=== PATIENT | female | born 1970 | race Two or more races ===

== ENCOUNTER 2024-10-05 17:18 | Emergency (ER) | payer OTHER ==
[2024-10-05] MEDS: IBUPROFEN 800 MG TAB PO ONE (17:47)
--- NOTE | 2024-10-05 18:08 | DVH ---
CLINICAL INDICATION: RO FX TECHNIQUE: 3 views of the right ankle Comparison: None FINDINGS/IMPRESSION: Nondisplaced acute traumatic fracture of the distal fibula Soft tissue swelling around the ankle.
[2024-10-05 19:04] VITALS: BP 131/82; PULSE 94; RESP 18; TEMP 98.5; O2SAT 98
[2024-10-05] MEDS: ONDANSETRON ODT 4 MG TAB PO ONE (19:14)
[2024-10-05] MEDS: HYDROcodone-ACET 5/325MG TAB PO ONE (19:14)
[2024-10-05] MEDS ORDERED: ACE3T PO (19:16)
--- NOTE | 2024-10-05 19:17 | ED.PDOC ---
Musculoskeletal HPI Comments 54 year old female presents to ER complaints of right ankle pain x1 day. Patient reports she started experiencing pain/swelling/cracking sensation to right lateral ankle at 9:00 a.m. this morning s/p sliding and falling on her right side while walking down a ramp of her mothers house. Denies head injury/LOC. She rates her current pain a 10/10 to right lateral ankle without radiation. Denies use of medications for current symptoms. Notes she has not been able to bear weight on right leg due to right lateral ankle pain. Denies right foot pain, right knee pain, right hip pain or any further symptoms/complaints Chief Complaint: Fall Injury Time Seen by MD: 18:12 Primary Care Provider: MOLINA Reviewed Notes: Nurses Notes, Medications, Allergies Allergies: Coded Allergies: NO KNOWN ALLERGIES (Unverified , 10/05/24) Home Meds Active Scripts Acetaminophen W/ Codeine (Tylenol W/Cod #3) 1 Tab Tb, 1 TAB PO Q6HPRN, #10 TAB 0 Refills Prov:ELIS VIDALES 10/05/24 Information Source: Patient Mode of Arrival: Ambulatory Past Medical History PAST MEDICAL HISTORY: Denies Surgical History: Denies all surgeries Family History Family History: Unknown Social History Smoker: Non-Smoker Alcohol: Denies ETOH Use Drugs: Denies Drug Use Lives In: Home Constitutional: denies: chills, diaphoresis, fatigue, fever, malaise, sweats, weakness, others EENTM: denies: blurred vision, double vision, ear bleeding, ear discharge, ear drainage, ear pain, ear ringing, eye pain, eye redness, hearing loss, mouth pain, mouth swelling, nasal discharge, nose bleeding, nose congestion, nose pain, photophobia, tearing, throat pain, throat swelling, voice changes, others Respiratory: denies: cough, hemoptysis, orthopnea, SOB at rest, shortness of breath, SOB with excertion, stridor, wheezing, others Cardiovascular: denies: chest pain, dizzy spells, diaphoresis, Dyspnea on exertion, edema, irregular heart beat, left arm pain, lightheadedness, palpitations, PND, syncope, others Gastrointestinal: denies: abdomen distended, abdominal pain, blood streaked bowels, constipated, diarrhea, dysphagia, difficulty swallowing, hematemesis, melena, nausea, poor appetite, poor fluid intake, rectal bleeding, rectal pain, vomiting, others Genitourinary: denies: abnormal vagina bleeding, burning, dyspareunia, dysuria, flank pain, frequency, hematuria, incontinence, pain, , vagina dis charge, urgency, others Neurological: denies: dizziness, fainting, headache, left sided numbness, left sided weakness, numbness, paresthesia, pre-existing deficit, right sided numbness, right sided weakness, seizure, speech problems, tingling, tremors, weakness, others Musculoskeletal: reports: others (As stated in HPI) Integumetry: reports: others (As stated in HPI) Allergic/Immunocompromised: denies: Difficulty Healing, Frequent Infections, Hives, Itching, others Hematologic/Lymphatic: denies: anemia, blood clots, easy bleeding, easy bruising, swollen glands, others Endocrine: denies: excessive hunger, excessive sweating, excessive thirst, excessive urination, flushing, intolerance to cold, intolerance to heat, unexplained weight gain, unexplained weight loss, others Psychiatric: denies: anxiety, bipolar disorder, depression, hopeless, panic disorder, schizophrenia, sleepless, suicidal, others Physical Exam General Appearance: No Apparent Distress HEENT: PERRL/EOMI Neck: Full Range of Motion, Non-Tender, Normal Respiratory: Chest Non-Tender, Lungs Clear, No Accessory Muscle Use, No Respiratory Distress, Normal Breath Sounds Cardiovascular: No Murmur, No Gallop, Regular Rate/Rhythm Breast Exam: Deferred Gastrointestinal: NOT DONE Genitalia: Deferred Pelvic: Deferred Rectal: Deferred Extremities: No calf tenderness, Normal capillary refill Musculoskeletal : Extremity Location: Ankle (Moderate swelling/TTP/ecchymosis noted to right distal fibula. No other TTP to right ankle/right foot or other TTP to right lower extremity appreciated. Pulses intact. Patient unable to bear weight on right leg due to pain localized to right distal fibula ) Neurologic: Alert, No Motor Deficits, Normal Affect, Normal Mood, No Sensory Deficits Cerebellar Function: Normal Reflexes: Normal Skin: Dry, Warm Peripheral Pulses: 2+ femoral (R), 2+ femoral (L), 2+ dorsalis pedis (R), 2+ dorsalis pedis (L), 2+ Radial (R), 2+ Radial (L), 2+ Brachial (R), 2+ Brachial (L) Lymphatic: No Adenopathy Was a procedure done? Was a procedure done?: No Sedation Sedation?: No Differential Diagnosis EXT Differential Diagnosis: Dislocation, Laceration, Neurovascular injury X-Ray, Labs, Meds, VS Vital Signs Date Time Temp Pulse Resp B/P (MAP) Pulse Ox O2 Delivery O2 Flow Rate FiO2 10/05/24 19:04 98.5 94 18 131/82 (98) 98 98.5 10/05/24 19:04 94 18 98 Room Air 10/05/24 17:25 98.5 94 18 131/82 (98) 98 Current Medications Medications (Trade) Dose Ordered Sig/Umair Route Start Time Stop Time Status Last Admin Ibuprofen (Motrin Tablet) 800 mg ONCE ONCE PO 10/05/24 17:45 10/05/24 17:46 DC 10/05/24 17:47 Acetaminophen/ Hydrocodone Bitart ([place] 5/325MG Tab) 1 tab ONCE ONCE PO 10/05/24 19:15 10/05/24 19:16 DC 10/05/24 19:14 Ondansetron HCl (Zofran Po) 4 mg ONCE ONCE PO 10/05/24 19:15 10/05/24 19:16 DC 10/05/24 19:14 PATIENT: JAMARCUS KWANCCT: [id number]: [id number] : 1970 LOC: ER ROOM / BED: / AGE / SEX: 54 / F ADM STATUS: REG ER SERVICE 31 ORDERING PHYSICIAN: MINDY MAHAN PROCEDURE(s): RANKL - R ANKLE 3 VIEW REASON: RO FX ORDER NUMBER(s): [id number], ACCESSION NUMBER(s): [id number] CLINICAL INDICATION: RO FX TECHNIQUE: 3 views of the right ankle Comparison: None FINDINGS/IMPRESSION: Nondisplaced acute traumatic fracture of the distal fibula Soft tissue swelling around the ankle. ATED BY: TERRY SHANKS MD DICTATED DATE/TIME: 10/05/241805 SIGNED BY: TERRY SHANKS MD SIGNED DATE/TIME: 10/05/241805 CC: Right ankle x-ray reviewed Ibuprofen 800 mg p.o. ordered [place] 5/325 mg p.o. ordered Zofran 4 mg p.o. ordered Right posterior short-leg splint applied Crutches ordered, patient educated on proper use. Was advised on nonweightbearing right leg Advised on rest/ no strenuous activity, elevation and alternate ice on/off as needed for pain/swelling Patient provided copy of x-ray imaging report Case, x-ray imaging report/images were discussed with orthopedic Dr. Cerda Patient provided information with regards to local orthopedic Dr. Farias office and advised to follow up in 1-2 days Advised to follow up with PCP in 1-2 days Patient verbalized understanding and agreeable with current plan of care Advised to return to ER immediately if symptoms worsen Time of 1ST Reevaluation: 18:44 Reevaluation 1ST: N/A Patient Education/Counseling: Diagnosis, Treatment, Prognosis, Need For Follow Up Family Education/Counseling: No Family Present Departure 1 Departure Time of Disposition: 19:02 Impression: Primary Impression: Ankle fracture, right Qualified Codes: S82.891A - Other fracture of right lower leg, initial encounter for closed fracture Disposition: 01 HOME / SELF CARE / HOMELESS Condition: Stable e-Prescriptions Acetaminophen W/ Codeine (Tylenol W/Cod #3) 1 Tab Tb 1 TAB PO Q6HPRN, #10 TAB 0 Refills Prov: ELIS VIDALES 10/05/24 Discharged With: Friend Critical Care Note Critical Care Time?: No Stability Stability form required: No Heart Score Heart Score: Heart Score Response (Comments) Value History N/A 0 EKG N/A 0 Age N/A 0 Risk Factors N/A 0 Troponin N/A 0 Total 0 ELIS VIDALES Oct 05, 2024 19:17
== END 2024-10-05 19:40 | disposition home or self-care (01) ==
LOC: ER 17:18
DX: S82.891A Other fracture of right lower leg, initial encounter for closed fracture (principal); W18.39XA Other fall on same level, initial encounter; Y93.89 Activity, other specified; Y92.89 Other specified places as the place of occurrence of the external cause; Y99.8 Other external cause status
CPT/HCPCS: 29515; 73610; 99284; Q0162